=== PATIENT | male | born 1965 | race African-American/Black ===

== ENCOUNTER 2017-04-08 04:16 | Emergency (ER) | payer MEDICARE, MEDICAID ==
[~2017-04-08] VITALS: Ht 175.3 cm; Wt 73.3 kg
[2017-04-08] MEDS ORDERED: KETOROLAC 30MG/ML VIAL IV STA (06:26)
[2017-04-08 06:54] VITALS: BP 116/83
[2017-04-08 07:15] LABS: BASOPHILS % 0.7 % (0.0-2.0); EOSINOPHILS % 0.3 % (0.0-5.0); HEMATOCRIT. 40.7 % (42.0-52.0); HEMOGLOBIN. 12.9 g/dL (14.0-18.0); MEAN CORPUSCULAR HEMOGLOBIN 29.1 pg (28.0-32.0); MEAN PLATELET VOLUME 7.6 fl (7.4-10.4); MONOCYTES % 6.7 % (2.0-8.0); NEUTROPHILS % 67.3 % (40.0-76.0); PLATELET 278 x1000/uL (130-400); RED BLOOD CELL COUNT 4.43 mill/uL (4.7-6.1); RED CELL DISTRIBUTION WIDTH 14.7 % (11.6-14.6)
[2017-04-08 07:21] LABS: INR 1.2; PROTHROMBIN TIME 12.2 sec (9.4-11.6)
[2017-04-08 07:30] LABS: CARBON DIOXIDE 28 mEq/L (21-32); CHLORIDE 109 mEq/L (98-107)
[2017-04-08 08:24] LABS: CLARITY URINE CLEAR (CLEAR); COLOR URINE YELLOW (YELLOW); GLUCOSE URINE NEGATIVE (NEGATIVE); KETONES URINE NEGATIVE (NEGATIVE); LEUKOCYTE ESTERASE URINE NEGATIVE (NEGATIVE); NITRITE URINE NEGATIVE (NEGATIVE); OCCULT BLOOD URINE NEGATIVE (NEGATIVE); PROTEIN URINE NEGATIVE (NEGATIVE); SPECIFIC GRAVITY URINE 1.021 (1.005-1.030)
[2017-04-08] MEDS ORDERED: ACETAMINOPHEN 325MG TABLET PO ONE (09:30)
== END 2017-04-08 09:55 | disposition home or self-care (01) ==
LOC: ER 07:47
DX: M54.5 Low back pain (principal); R05 Cough; F15.10 Other stimulant abuse, uncomplicated; F12.10 Cannabis abuse, uncomplicated; F17.200 Nicotine dependence, unspecified, uncomplicated
CPT/HCPCS: 36415; 71010; 80053; 81003; 83690; 85025; 85610; 96374; 99285; J1885